=== PATIENT | female | born 1965 | race Caucasian/White ===

== ENCOUNTER → 2016-06-18 | Outpatient (CLI) | payer OTHER ==
[~2016-06-18] VITALS: Ht 167.6 cm; Wt 108.9 kg
[~2016-06-18] MED LIST: CALCIUM 500 MG1 EACH PO; MIRENA52 MG IY; MULTIPLE VITAM1 EAC4 PO; VITAMIN C500 M1 PO
== END | disposition home or self-care (01) ==
LOC: AMB 09:56
DX: Z12.11 Encounter for screening for malignant neoplasm of colon (principal); D12.2 Benign neoplasm of ascending colon; K64.8 Other hemorrhoids; K52.9 Noninfective gastroenteritis and colitis, unspecified; E78.5 Hyperlipidemia, unspecified; E66.9 Obesity, unspecified; Z68.38 Body mass index [BMI] 38.0-38.9, adult; Z80.0 Family history of malignant neoplasm of digestive organs; Z83.49 Family history of other endocrine, nutritional and metabolic diseases; Z80.3 Family history of malignant neoplasm of breast; Z83.79 Family history of other diseases of the digestive system
CPT/HCPCS: 88305; B4087; J2250; J3010

== ENCOUNTER 2017-08-15 17:16 | Emergency (ER) | payer OTHER ==
[~2017-08-15] VITALS: Ht 167.6 cm; Wt 100.0 kg
[2017-08-15 18:55] LABS: HEMATOCRIT 40.3 % (36.0-46.0); HEMOGLOBIN 13.5 G/DL (11.9-15.5); MCH 30.8 PG (29.0-34.0); MCHC 33.5 G/DL (30.0-36.0); PLATELET COUNT 230 K/uL (156-360); RBC DIS.WIDTH-CV 13.1 % (11.8-14.6); RBC DIS.WIDTH-SD 44.4 % (39-53); RED BLOOD COUNT 4.38 M/uL (3.80-5.20); WHITE BLOOD COUNT 7.9 K/uL (4.1-10.2)
[2017-08-15 19:18] LABS: ALBUMIN 4.5 g/dL (3.2-4.8); CHLORIDE 105 mEq/L (99-109); POTASSIUM 4.3 mEq/L (3.7-5.4); SODIUM 141 mEq/L (136-147)
[2017-08-15 19:21] LABS: GLUCOSE 91 mg/dL (70-99); TOTAL PROTEIN 7.7 g/dL (6.4-8.3)
[2017-08-15 19:23] LABS: TOTAL BILIRUBIN 0.6 mg/dL (0.0-1.0)
[2017-08-15 19:24] LABS: ALKALINE PHOSPHATASE 157 IU/L (3-129); CREATININE 0.8 mg/dL (0.6-1.3); GFR ESTIMATE (CALCULATED) > 59 mL/min/
[2017-08-15 19:25] LABS: UREA NITROGEN (BUN) 18 mg/dL (9-23)
[2017-08-15 19:26] LABS: AST (GOT) 43 IU/L (2-34)
[2017-08-15 19:27] LABS: ALT (GPT) 72 IU/L (3-49)
[2017-08-15 20:30] VITALS: BP 121/84
== END 2017-08-15 21:01 | disposition left against medical advice (07) ==
LOC: EME 17:16
DX: R10.9 Unspecified abdominal pain (principal); R79.89 Other specified abnormal findings of blood chemistry
CPT/HCPCS: 80053; 81003; 85027; 99281; 99283